=== PATIENT | male | born 1995 | race Asian ===

== ENCOUNTER 2017-03-30 15:26 | Emergency (ER) | payer BC ==
[2017-03-30 15:45] VITALS: TEMP 98.2
[2017-03-30] MEDS ORDERED: ONDANSETRON 4 MG/2 ML VIAL IVP ONE (16:36)
[2017-03-30] MEDS ORDERED: NS 1,000 ML IV ONE (16:37)
--- NOTE | 2017-03-30 16:45 | EDPHY ---
H & P Time Seen by Provider: 03/30/17 16:41 HPI/ROS: CHIEF COMPLAINT: Woozy, unable to eat. HISTORY OF PRESENT ILLNESS: This patient is a 21 year old male complaining of intermittent dizziness over the last two weeks and lack of appetite onset this morning. Onset of nausea this morning. He did not eat or drink anything today. Around 1.5 hours ago while working, he got bad shakes, couldn't focus his eyes properly, and felt as if he were going to faint. He tried to eat something, but felt very nauseous. He did not eat breakfast this morning due to nausea. Yesterday, he felt well but had one episode of watery diarrhea. No associated blood, no abdominal cramping. He denies fever, usual food consumption, or interaction with ill contacts. He has been lightheaded in the evenings and around lunchtime for the last two weeks. He thinks his symptoms may be related to low blood sugar, and has been cutting out sugary drinks during the day since his lightheadedness began. No history of diabetes. He has felt more stressed lately due to his new job. REVIEW OF SYSTEMS: A 10 point review of systems was performed and is negative with the exception of the elements mentioned in the history of present illness. Past Medical/Surgical History: Coccyx fracture. Family history of high blood pressure on father's side. Social History: Lives in [place]. [employer] student. 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 No tobacco or alcohol use. Smoking Status: Never smoked Physical Exam: General Appearance: Alert, nontoxic, pleasant Eyes: Pupils equal and round, no conjunctival pallor or injection ENT, Mouth: Mucous membranes moist Neck: Normal inspection Respiratory: Lungs are clear to auscultation Cardiovascular: Regular rate and rhythm Gastrointestinal: Abdomen is soft and non-tender Neurological: A&O, nonfocal, normal gait Skin: Warm and dry, no rash Extremities: Nontender, no pedal edema Psychiatric: Mood and affect normal Constitutional: Initial Vital Signs Temperature (C) 36.8 C 03/30/17 15:42 Heart Rate 95 03/30/17 15:42 Respiratory Rate 18 03/30/17 15:42 Blood Pressure 148/82 H 03/30/17 15:42 O2 Sat (%) 99 03/30/17 15:42 O2 Delivery Mode Room Air Allergies/Adverse Reactions: No Known Allergies Allergy (Unverified 03/30/17 15:42) Home Medications: Medication Instructions Recorded Ondansetron Odt [Zofran Odt 4 mg 4 mg PO Q4 PRN #6 tab 03/30/17 (*)] Medical Decision Making - Diagnostics EKG Interpretation: EKG interpreted by me reveals normal sinus rhythm, rate 73, no ST/T changes. Interpretation: normal EKG ED Course/Re-evaluation: 21 year old male presents with two week history of lightheadedness, as well as nausea and diarrhea today. Plan for 1L IV NS and 4mg IV Zofran for symptom relief. Plan for EKG for evaluation of cardiogenic causes of the patient's lightheadedness. Plan for labs including CBC, BMP. The patient is feeling improved with IV fluids and Zofran administration. EKG shows normal sinus rhythm without ischemic changes. The etiology of his intermittent dizziness is unclear. There is no evidence of vertigo, hypoglycemia, anemia, electrolyte disorder or cardiac etiology. He is certainly safe and stable for discharge. He will follow up with his primary care physician for further evaluation. Differential Diagnosis: Dizziness including but not limited to peripheral and central causes of vertigo , orthostatic causes including dehydration, and blood loss. - Data Points Laboratory Results: Laboratory Results 03/30/17 16:34 03/30/17 16:34 03/30/17 03/30/17 16:34 16:34 WBC 7.56 10^3/uL 10^3/uL (3.80-9.50) RBC 5.83 10^6/uL 10^6/uL (4.40-6.38) Hgb 17.0 g/dL g/dL (13.7-17.5) Hct 49.3 % % (40.0-51.0) MCV 84.6 fL fL (81.5-99.8) MCH 29.2 pg pg (27.9-34.1) MCHC 34.5 g/dL g/dL (32.4-36.7) RDW 13.1 % % (11.5-15.2) Plt Count 278 10^3/uL 10^3/uL (150-400) MPV 9.8 fL fL (8.7-11.7) Neut % (Auto) 55.1 % % (39.3-74.2) Lymph % (Auto) 32.3 % % (15.0-45.0) [place] % (Auto) 8.9 % % (4.5-13.0) Eos % (Auto) 2.6 % % (0.6-7.6) Baso % (Auto) 0.8 % % (0.3-1.7) Nucleat RBC Rel Count 0.0 % % (0.0-0.2) Absolute Neuts (auto) 4.17 10^3/uL 10^3/uL (1.70-6.50) Absolute Lymphs (auto) 2.44 10^3/uL 10^3/uL (1.00-3.00) Absolute Monos (auto) 0.67 10^3/uL 10^3/uL (0.30-0.80) Absolute Eos (auto) 0.20 10^3/uL 10^3/uL (0.03-0.40) Absolute Basos (auto) 0.06 10^3/uL 10^3/uL (0.02-0.10) Absolute Nucleated RBC 0.00 10^3/uL 10^3/uL (0-0.01) Immature Gran % 0.3 % % (0.0-1.1) Immature Gran # 0.02 10^3/uL 10^3/uL (0.00-0.10) Sodium 142 mEq/L mEq/L (134-144) Potassium 4.0 mEq/L mEq/L (3.5-5.2) Chloride 102 mEq/L mEq/L (97-110) Carbon Dioxide 22 mEq/l mEq/l (22-31) Anion Gap 18 mEq/L H mEq/L (8-16) BUN 18 mg/dL mg/dL (7-23) Creatinine 1.0 mg/dL mg/dL (0.7-1.3) Estimated GFR > 60 Glucose 81 mg/dL mg/dL (70-100) Calcium 10.1 mg/dL mg/dL (8.5-10.4) Medications Given: Discontinued Medications Sodium Chloride (Ns) 1,000 mls @ 0 mls/hr IV ONCE ONE; Wide Open PRN Reason: Protocol Stop: 03/30/17 16:38 Last Admin: 03/30/17 16:40 Dose: 1,000 mls Ondansetron HCl (Zofran) 4 mg IVP EDNOW ONE Stop: 03/30/17 16:37 Last Admin: 03/30/17 16:41 Dose: 4 mg Departure - Departure Disposition: Home, Routine, Self-Care Clinical Impression: Vomiting and diarrhea Condition: Good Instructions: Acute Nausea and Vomiting (ED) Additional Instructions: 1. Follow up with your primary care physician for continued evaluation of your lightheadedness. We have referred you to our primary care provider business economist. Referrals: Everardo Lincoln MD [Medical Doctor] - As per Instructions Prescriptions: Ondansetron Odt [Zofran Odt 4 mg (*)] 4 mg PO Q4 PRN #6 tab PRN Reason: Nausea Report Scribed for: Rosalee Lopez Report Scribed by: Kassy Bowen Date of Report: 03/30/17 Time of Report: 16:44 Physician Review and Approval Statement: 03/30/17 16:44 Portions of this note were transcribed by a medical office specialist. I personally performed a history, physical exam, medical decision making, and confirmed accuracy of information the transcribed note.
[2017-03-30 16:46] LABS: % IMMATURE GRANULYOCYTES 0.3 % (0.0-1.1); ABSOLUTE IMMATURE GRANULOCYTES 0.02 10^3/uL (0.00-0.10); ADD DIFF? NO; ADD MORPH? NO; ADD SCAN? NO; ATYPICAL LYMPHOCYTE FLAG 0 (0-99); FRAGMENT RBC FLAG 0 (0-99); HEMATOCRIT 49.3 % (40.0-51.0); LEFT SHIFT FLG 0 (0-99); LIPEMIA HEMOLYSIS FLAG 90 (0-99); MEAN CELL HEMOGLOBIN 29.2 pg (27.9-34.1); MEAN CELL HEMOGLOBIN CONCENTR. 34.5 g/dL (32.4-36.7); MEAN CELL VOLUME 84.6 fL (81.5-99.8); MEAN PLATELET VOLUME 9.8 fL (8.7-11.7); PLATELET CLUMPS FLAG 0 (0-99); PLATELET COUNT 278 10^3/uL (150-400); RED BLOOD CELL COUNT 5.83 10^6/uL (4.40-6.38); RED CELL DISTRIBUTION WIDTH 13.1 % (11.5-15.2)
[2017-03-30 16:55] LABS: ANION GAP 18 mEq/L (8-16); CALCIUM 10.1 mg/dL (8.5-10.4); CARBON DIOXIDE 22 mEq/l (22-31); CHLORIDE 102 mEq/L (97-110); GLOMERULAR FILTRATION RATE > 60; GLUCOSE 81 mg/dL (70-100); SODIUM 142 mEq/L (134-144)
--- NOTE | 2017-03-30 17:55 | CPEKG ---
Heart Rate: 73 RR Interval: 822 P-R Interval: 144 QRSD Interval: 84 QT Interval: 344 QTC Interval: 379 P [place]: 6 QRS [place]: 41 T Wave [place]: 17 EKG Severity - NORMAL ECG - EKG Impression: SINUS RHYTHM Electronically Signed By: Rosalee Lopez 30-Mar-2017 21:59:08
[2017-03-30 18:15] VITALS: BP 120/69; PULSE 80; RESP 16; O2SAT 98
== END 2017-03-30 18:14 | disposition home or self-care (01) ==
DX: R19.7 Diarrhea, unspecified (principal); E86.9 Volume depletion, unspecified; R11.10 Vomiting, unspecified
CPT/HCPCS: 96374; J2405